=== PATIENT | female | born 2005 | race Two or more races ===

== ENCOUNTER 2025-02-07 08:35 | Outpatient (AMB) | payer MEDICAID, SELFPAY ==
--- NOTE | 2025-02-07 08:52 | AMB.OBINITIA ---
Vital Signs 02/07/25 08:57 Height 1.55 m Height Method Measured Weight 81.873 kg Weight Measurement Method Standing Scale BMI 34.1 BP 109/71 Blood Pressure Source Automatic Cuff Blood Pressure Location Left Upper Arm Position Sitting Respiration 16 Pulse 81 Pulse Source Monitor Temp 97.2 F Temp Source Oral Pulse Oximetry (%) 98 Oxygen Delivery Method Room Air Allergies/Home Meds Allergies & Medications Allergies No Known Allergies Allergy (Verified 02/07/25 08:58) Medication Reconciliation No Known Home Medications 02/07/25 [History Confirmed 02/07/25] Intake Visit Data Collection New Patient or Established: Established Patient (seen at [facility] within 3 years) Reason for Visit:: care transfer Seen by Clinical Staff ONLY (RN/MA): No Immigration Patrol Inspector Required: No Do You Feel Safe at Home: Yes Authorities Contacted: N/A PCP or OBGYN visit in last 3 months: Yes Hx Now: Yes Are you currently on any form of Control: No Last menstrual period: 06/29/24 Pain Present Currently: No Pain Scale Used: Wells-[place]/Numerical Pain scale:: 0 Smoking Status Smoking Status: Never smoker Questionnaires Covid-19 Vaccine Questionnaire Has patient been vacinated for Covid-19 Have you been vacinated for Covid-19: Yes PHQ-9 PHQ-2 Over the last 2 weeks, how often have you been bothered by any of the following problems? 1. Little interest or pleasure in doing things: not at all 2. Feeling down, depressed, or hopeless: not at all Total score: 0 PHQ-9 3. Trouble falling or staying asleep, or sleeping too much: Not at all 4. Feeling tired or having little energy: Not at all 5. Poor appetite or overeating: Not at all 6. Feeling bad about yourself - or that you are a failure or have let yourself or your family down: Not at all 7. Trouble concentrating on things, such as reading the newspaper or watching television: Not at all 8. Moving or speaking so slowly that other people could have noticed? - Or the opposite - being so fidgety or restless that you have been moving around a lot more than usual: not at all 9. Thoughts that you would be better off or of hurting yourself in some way: Not at all Total score: 0 Source: Developed by Drs. Gautam Stevenson, Daphney Duque, Kenny Claire and colleagues, with an educational zuhair from [employer]. Depression screen completed yes Social History Living Situation History Marital Status: Single Lives With: Family Housing: Apartment Tobacco History Smoking Status: Never smoker Second Hand Smoke Exposure: No Alcohol History Alcohol Intake: Never Domestic Abuse History Do You Feel Safe at Home: Yes Past Medical History Past Medical History Have you ever been diagnosed with any of the following: Endocrine Problems Diabetes Mellitus Type 2: No (mother) History of Present Illness HPI Narrative 19-year-old 1 para 0 for first visit [facility]. Patient is a transfer from Dr. Lema at 32 weeks. Last. June 29, 2024. Estimated due date April 03, 2025. Patient had her first ultrasound November 08. Patient was 19 weeks 4 days and this confirmed due date. And then patient had a 25-week ultrasound December 19 and this also confirmed dates. Denies social habits. Denies surgery. Denies chronic illness. Patient's has been uneventful. She reports good movement. Denies symptoms of labor. Patient is O+, screen negative, RPR nonreactive, rubella nonimmune, hepatitis B negative, HIV negative, hep C negative, her gonorrhea culture was negative. Chlamydia positive. The note states that patient and partner were treated. There is no follow-up culture that was done. 1 hour Glucola was normal. aFP NIPT and carrier screens were all normal. And the ultrasound showed normal growth no complaints of labor at this time OB Initial Visit OB Flowsheet OB Flowsheet Initial Weight: Not Recorded Date <del>?</del> EGA Weight Edema CTX Effacement BP Fundal ht Pres Dilation Effacement Station Visit Note Alb Glu FHR Mov 02/07/25 <del>?</del> 32w 4d 81.873 kg absent absent 109/71 30 unknown 19-year-old 1 for first OB visit. Patient reports good movement. Taking vitamins. Compliant with care. [facility] from [facility]. Patient is O+, antibody screen negative, RPR nonreactive, rubella nonimmune, platelets were normal. H&H was 36 and 11.2. Hemoglobin A1c was normal 1 hour GTT normal. Hepatitis B negative, HIV negative, hep C negative,. GC was negative. Chlamydia positive. Patient and partner were cheated. No test of cure noted. Schedule sono for growth because baby is measuring 3 to 4 weeks behind on dates. Encouraged kick count twice a day. Continue prenatals. NuSwab for gonorrhea and chlamydia today. Tdap next visit. Patient denies complaints 19-year-old 1 for first OB visit. Patient reports good movement. Taking vitamins. Compliant with care. Transfer from [facility]. Patient is O+, antibody screen negative, RPR nonreactive, rubella nonimmune, platelets were normal. H&H was 36 and 11.2. Hemoglobin A1c was normal 1 hour GTT normal. Hepatitis B negative, HIV negative, hep C negative,. GC was negative. Chlamydia positive. Patient and partner were cheated. No test of cure noted. Schedule sono for growth because baby is measuring 3 to 4 weeks behind on dates. Encouraged kick count twice a day. Continue prenatals. NuSwab for gonorrhea and chlamydia today. Tdap next visit. Patient denies complaints. UA: NIT-,KAREN:+1, PRO:trace 156 active Menstrual History Menstrual reliability: definite Flow: normal Menstrual regularity: regular Monthly: Yes Age at menarche: 15 On control pills at conception: No Associated symptoms (LMP): Denies amenorrhea, nausea, vomiting, fatigue, breast tenderness, urinary frequency, irritability, bloating or other OB History : 1 # of Living Children: 0 Infection History & Risk Evaluation History of STDs: chlamydia (partner and patient treated) HIV risk evaluation: low risk Hepatitis B risk evaluation: low risk Patient or partner has history of Genital Herpes: No Genetic Screening & History Genetic Screening/Teratology Counseling - Includes patient, baby's father, or anyone in either family with: 1. Patient's age 35 years or older as of estimated date of delivery: No 2. Thalassemia (Finnish, Jordanian, Mediterranean, or Background); MCV less than 80: No 3. Neural Tube Defect (Meningomyelocele, Spina Bifida, or Anencephaly): No 4. Congenital Heart Defect: No 5. Down Syndrome: No 6. Archie-Sachs (Ashkenazi Restorationism, Cajun, Upper Sorbian [place]): No 7. Tianna Disease (Ashkenazi Restorationism): No 8. Familial Dysautonomia (Ashkenazi Restorationism): No 9. Sickle Cell Disease or Trait (): No 10. Hemophilia or other blood disorders: No 11. Muscular Dystrophy: No 12. Cystic Fibrosis: No 13. [place]'s Chorea: No 14. Mental Retardation/Autism: No 15. Other inherited genetic or chromosomal disorder: No 16. Maternal Metabolic Disorder (EG,TYPE 1 Diabetes, PKU): No 17. Patient or baby's father had a child with defects not listed above: No 18. Recurrent loss or a stillbirth: No 19. Medications (including supplements, vitamins, herbs or otc drugs)/illicit/recreational drugs/alcohol since last menstrual period: No 20. Any other: No Infection History 1. Live with someone with TB or exposed to TB: No 2. Rash or viral illness since last menstrual period: No 3. Hepatitis B,C: No Other (see comments) Source: [employer] [place] Review of Systems Review of Systems Systems Reviewed: All systems reviewed, normal except as documented Constitutional Constitutional: Denies fatigue Gastrointestinal Gastrointestinal: Denies bloating, Denies nausea and Denies vomiting Genitourinary Genitourinary: Denies amenorrhea and Denies urinary frequency Psychiatric Psychiatric: Denies irritability Endocrine Endocrine: Denies fatigue Exam General Limitations: no limitations General Appearance: alert, in no apparent distress, comfortable, cooperative, healthy appearing, well developed and well groomed Head Head exam: atraumatic, normocephalic and normal inspection Chest Chest inspection: Present normal inspection and symmetric chest wall rise Resp Respiratory exam: Present normal lung sounds bilaterally Card Cardiovascular exam: Present regular rate, normal rhythm and normal heart sounds Abdominal Abdominal exam: Present soft and normal bowel sounds Psych Psychiatric exam: Present normal affect and normal mood Assessment & Plan Diagnosis / Problem List (1) Encounter for supervision of other normal , third trimester: Status: Acute (2) Size of fetus inconsistent with dates, antepartum: Status: Acute Plan Schedule ultrasound at [facility] for growth scan. Discussed labor precautions. Discussed kick count twice a day and encouraged. Continue vitamins and iron. NuSwab today for GC and chlamydia. Tdap next visit. Return in 2 weeks Additional Plan Follow Up: 2 Weeks (OBC) Office Procedures OB Clinic LOC & Office Proc's Nursing/Assessment Patient Status: Established Patient OB Clinic Nursing Assessment: Medication Reconciliation, Update PMH in EMR and Vital Signs OB Clinic Coordination of Care: Complex Care and Chronic Disease 1-5, Consent,records obtained, informed consent, Education Simp Pt/Fam, Lab and Imaging orders, Results/Orders obtained and Staff clarify orders Special Needs: Heart tones Miscellaneous Interventions: Blood/Urine Collection Established Patient Charge Established Patient Point Assignment: 165 Established Patient Point Charge: EP Level 5 (160-above)
[2025-02-07 08:57] VITALS: BP 109/71; PULSE 81; RESP 16; TEMP 36.2; O2SAT 98; BMI 34.1
[2025-02-07 09:31] LABS: Bilirubin,Urine Clinitek Negative (Negative); Blood,Urine Clinitek Negative (Negative); Glucose, Urine Clinitek Negative (Negative); Ketones,Urine Clinitek Negative (Negative); Leukocyte Esterase,Urine Clin Negative (Negative); Nitrite,Urine Clinitek Negative (Negative); Protein,Urine Clinitek Negative (Neg - Trace); Specific Gravity,Urine Clin 1.015 (1.001-1.030); Urobilinogen,Urine Clinitek 0.2 mg/dL (0.0-1.0)
== END 2025-02-07 09:56 | disposition home or self-care (01) ==
LOC: HODSOBC 08:35
PROVIDERS: PCP Advanced Practice Midwife; Referring Provider Advanced Practice Midwife; Supervising Provider Obstetrics & Gynecology; Visit Provider Advanced Practice Midwife
DX: O09.613 Supervision of young primigravida, third trimester (principal); Z3A.32 32 weeks gestation of pregnancy; O26.843 Uterine size-date discrepancy, third trimester
CPT/HCPCS: 81001; 99215; G0463

== ENCOUNTER 2025-02-21 10:58 | Outpatient (AMB) | payer MEDICAID, SELFPAY ==
[2025-02-21 11:15] VITALS: BP 123/81; PULSE 96; RESP 18; TEMP 36.4; O2SAT 97; BMI 34.6
--- NOTE | 2025-02-21 11:15 | OBCLNT_ITS ---
Vital Signs 02/21/25 11:15 Height 1.55 m Height Method Stated Weight 83.121 kg Weight Measurement Method Standing Scale BMI 34.6 BP 123/81 Blood Pressure Source Automatic Cuff Blood Pressure Location Left Upper Arm Position Sitting Respiration 18 Pulse 96 Pulse Source Monitor Temp 97.6 F Temp Source Oral Pulse Oximetry (%) 97 Oxygen Delivery Method Room Air Allergies/Home Meds Allergies & Medications Allergies No Known Allergies Allergy (Verified 02/21/25 11:16) Medication Reconciliation No Known Home Medications 02/07/25 [History Confirmed 02/21/25] Intake Visit Data Collection New Patient or Established: Established Patient (seen at 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 1. Little interest or pleasure in doing things: not at all 2. Feeling down, depressed, or hopeless: not at all Total score: 0 PHQ-9 3. Trouble falling or staying asleep, or sleeping too much: Not at all 4. Feeling tired or having little energy: Not at all 5. Poor appetite or overeating: Not at all 6. Feeling bad about yourself - or that you are a failure or have let yourself or your family down: Not at all 7. Trouble concentrating on things, such as reading the newspaper or watching television: Not at all 8. Moving or speaking so slowly that other people could have noticed? - Or the opposite - being so fidgety or restless that you have been moving around a lot more than usual: not at all 9. Thoughts that you would be better off or of hurting yourself in some way: Not at all Total score: 0 Source: Developed by Daphney IzquierdoW. Neto, Kenny Claire and colleagues, with an educational zuhair from [employer]. 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 Patient reports good movement. Taking vitamins. Compliant with care. Transfer from [facility]. Patient is O+, antibody screen negative, RPR nonreactive, rubella nonimmune, platelets were normal. H&H was 36 and 11.2. Hemoglobin A1c was normal 1 hour GTT normal. Hepatitis B negative, HIV negative, hep C negative,. GC was negative. Chlamydia positive. Patient and partner were cheated. No test of cure noted. Schedule sono for growth because baby is measuring 3 to 4 weeks behind on dates. Encouraged kick count twice a day. Continue prenatals. NuSwab for gonorrhea and chlamydia today. Tdap next visit. Patient denies complaints 19-year-old 1 for fi rst OB visit. Patient reports good movement. Taking vitamins. Compliant with care. Transfer from [facility]. Patient is O+, antibody screen negative, RPR nonreactive, rubella nonimmune, platelets were normal. H&H was 36 and 11.2. Hemoglobin A1c was normal 1 hour GTT normal. Hepatitis B negative, HIV negative, hep C negative,. GC was negative. Chlamydia positive. Patient and partner were cheated. No test of cure noted. Schedule sono for growth because baby is measuring 3 to 4 weeks behind on dates. Encouraged kick count twice a day. Continue prenatals. NuSwab for gonorrhea and chlamydia today. Tdap next visit. Patient denies complaints. UA: NIT-,KAREN:+1, PRO:trace 156 active 02/21/25 -?-?-?-?-?-?-?-?-?-?-?-?- 34w 4d 83.121 kg absent absent 123/81 33 cephalic reports movement. denies PTL sign and symptom, discuss fkc bid, GBS NV, schedule sono for growth. patient has dignity insurance, attempting approval. increase fluid, fkc bid, rtc 1 week. TDAP 151 active AD Calculator Estimated Delivery Date Method Current WG Current Estimate 03/31/25 Ultrasound #1 34w 4d Other Estimates 04/05/25 LMP (Certain) 33w 6d 04/01/25 Ultrasound #2 34w 3d Notes Visit Date: 02/21/25 Last Updated by: Mayra Brink CNM 20yo. , O+,abs-,rpr;;nr, rub NI, Hbsag-,HC-,HIV, GC-/CT+. treated pt/partner, TALA was negative Office Procedures OB Clinic LOC & Office Proc's Nursing/Assessment Patient Status: Established Patient OB Clinic Nursing Assessment: Medication Reconciliation, Update PMH in EMR and Vital Signs OB Clinic Coordination of Care: Complex Care and Chronic Disease 1-5, Consent,records obtained, informed consent, Education Simp Pt/Fam, Lab and Imaging orders, Results/Orders obtained and Staff clarify orders Special Needs: Heart tones Miscellaneous Interventions: Blood/Urine Collection Established Patient Charge Established Patient Point Assignment: 165 Established Patient Point Charge: EP Level 5 (160-above) Injection/Vaccine Admin Admin 1st Vaccine: Yes Immunizations diphth,pertus(acell),tetanus 2.5 Lf unit-8 mcg-5 Lf/0.5mL IM syringe Performing Provider: Mayra Brink CNM Performing Location: [facility] Administered by: Adore Franklin MA on 02/21/25 11:58 Dose Route Admin Location Dispensed Lot Number Expiration Date [facility] [employer] Deputy [employer] 0.5 mL IM Left Deltoid 0.5 mL [id number] 03/23/27 [id number] Box VIS Given Date VIS Provided VIS Publication Date 02/21/25 Single Vaccine 24 Eligibility Eligibility Date Funding Source [facility] Non-[facility] Assessment & Plan Diagnosis / Problem List (1) Encounter for supervision of other normal , third trimester: Status: Acute Plan Tdap today. Discussed labor precautions. Discussed kick counts twice a day. Increase fluids. Continue vitamins. I rescheduled sono for growth. Return in a week for GBS Additional Plan Follow Up: 1 Week (obc)
[2025-02-21 12:53] LABS: Bilirubin,Urine Clinitek Negative (Negative); Blood,Urine Clinitek Negative (Negative); Glucose, Urine Clinitek Negative (Negative); Ketones,Urine Clinitek Negative (Negative); Leukocyte Esterase,Urine Clin 1+ (Negative); Nitrite,Urine Clinitek Negative (Negative); PH,Urine Clinitek 6.5 (5.0-7.0); Protein,Urine Clinitek 2+ (Neg - Trace); Specific Gravity,Urine Clin >= 1.030 (1.001-1.030); Urobilinogen,Urine Clinitek 0.2 mg/dL (0.0-1.0)
== END 2025-02-21 11:54 | disposition home or self-care (01) ==
LOC: HODSOBC 10:58
PROVIDERS: Supervising Provider Advanced Practice Midwife; Visit Provider Advanced Practice Midwife
DX: O09.613 Supervision of young primigravida, third trimester (principal); Z3A.34 34 weeks gestation of pregnancy; Z23 Encounter for immunization
CPT/HCPCS: 81001; 90471; 90715; 99215; G0463

== ENCOUNTER 2025-02-27 14:28 | Outpatient (AMB) | payer MEDICAID, SELFPAY ==
[2025-02-27 15:01] VITALS: BP 118/66; PULSE 83; RESP 18; TEMP 36.2; O2SAT 98; BMI 35.5
--- NOTE | 2025-02-27 15:01 | AMB.OBVISIT ---
Vital Signs 02/27/25 15:01 Height 1.55 m Height Method Stated Weight 85.389 kg Weight Measurement Method Standing Scale BMI 35.5 BP 118/66 Blood Pressure Source Automatic Cuff Blood Pressure Location Left Upper Arm Position Sitting Respiration 18 Pulse 83 Pulse Source Monitor Temp 97.2 F Temp Source Oral Pulse Oximetry (%) 98 Oxygen Delivery Method Room Air Allergies/Home Meds Allergies & Medications Allergies No Known Allergies Allergy (Verified 02/27/25 15:03) Medication Reconciliation No Known Home Medications 02/07/25 [History Confirmed 02/27/25] Intake Visit Data Collection New Patient or Established: Established Patient (seen at [facility] within 3 years) Reason for Visit:: <del>FOLLOW</del> <del>UP</del> Seen by Clinical Staff ONLY (RN/MA): No Athletic Equipment Manager Required: Yes Do You Feel Safe at Home: Yes Authorities Contacted: N/A PCP or OBGYN visit in last 3 months: Yes Date of Last PCP or OBGYN visit: 02/21/25 Hx Now: Yes Are you currently on any form of Control: No Pain Present Currently: No Pain Scale Used: Wells-T[place]/Numerical Pain scale:: 0 Smoking Status Smoking Status: Never smoker Questionnaires PHQ-9 PHQ-2 Over the last 2 weeks, how often have you been bothered by any of the following problems? 1. Little interest or pleasure in doing things: not at all 2. Feeling down, depressed, or hopeless: not at all Total score: 0 PHQ-9 3. Trouble falling or staying asleep, or sleeping too much: Not at all 4. Feeling tired or having little energy: Not at all 5. Poor appetite or overeating: Not at all 6. Feeling bad about yourself - or that you are a failure or have let yourself or your family down: Not at all 7. Trouble concentrating on things, such as reading the newspaper or watching television: Not at all 8. Moving or speaking so slowly that other people could have noticed? - Or the opposite - being so fidgety or restless that you have been moving around a lot more than usual: not at all 9. Thoughts that you would be better off or of hurting yourself in some way: Not at all Total score: 0 If you checked off any problems, how difficult have these problems made it for you to do your work, take care of things at home, or get along with other people?: not difficult at all Source: Developed by Drs. Gautam Stevenson, Daphney Duque, Kenny Claire and colleagues, with an educational zuhair from [employer]. 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 Patient reports good movement. Taking vitamins. Compliant with care. Transfer from [facility]. Patient is O+, antibody screen negative, RPR nonreactive, rubella nonimmune, platelets were normal. H&H was 36 and 11.2. Hemoglobin A1c was normal 1 hour GTT normal. Hepatitis B negative, HIV negative, hep C negative,. GC was negative. Chlamydia positive. Patient and partner were cheated. No test of cure noted. Schedule sono for growth because baby is measuring 3 to 4 weeks behind on dates. Encouraged kick count twice a day. Continue prenatals. NuSwab for gonorrhea and chlamydia today. Tdap next visit. Patient denies complaints 19-year-old 1 for first OB visit. Patient reports good movement. Taking vitamins. Compliant with care. Transfer from [facility]. Patient is O+, antibody screen negative, RPR nonreactive, rubella nonimmune, platelets were normal. H&H was 36 and 11.2. Hemoglobin A1c was normal 1 hour GTT normal. Hepatitis B negative, HIV negative, hep C negative,. GC was negative. Chlamydia positive. Patient and partner were cheated. No test of cure noted. Schedule sono for growth because baby is measuring 3 to 4 weeks behind on dates. Encouraged kick count twice a day. Continue prenatals. NuSwab for gonorrhea and chlamydia today. Tdap next visit. Patient denies complaints. UA: NIT-,KAREN:+1, PRO:trace 02/21/25 <del>?</del> 34w 4d 83.121 kg 123/81 absent cephalic 33 151 active reports movement. denies PTL sign and symptom, discuss fkc bid, GBS NV, schedule sono for growth. patient has dignity insurance, attempting approval. increase fluid, fkc bid, rtc 1 week. TDAP 02/27/25 <del>?</del> 35w 3d 85.389 kg 118/66 absent cephalic 33 145 active fetus active, no c/o UC,VB or LOF. denies PIH complaints f/u on mfm appointment, discuss FKC bid and labor precaution. NST/BPP today for small for dates. GBS today. RTC 1 week AD Calculator Estimated Delivery Date Method Current WG Current Estimate 03/31/25 Ultrasound #1 35w 3d Other Estimates 04/05/25 LMP (Certain) 34w 5d 04/01/25 Ultrasound #2 35w 2d Notes Visit Date: 02/21/25 Last Updated by: Mayra Brink CNM 20yo. , O+,abs-,rpr;;nr, rub NI, Hbsag-,HC-,HIV, GC-/CT+. treated pt/partner, TALA was negative Office Procedures OB Clinic LOC & Office Proc's Nursing/Assessment Patient Status: Established Patient OB Clinic Nursing Assessment: Medication Reconciliation, Update PMH in EMR and Vital Signs OB Clinic Coordination of Care: Education Complex Pt/Fam, Consent,records obtained, informed consent and Lab and Imaging orders Special Needs: Heart tones Miscellaneous Interventions: Pelvic Comp w/OB cult Established Patient Charge Established Patient Point Assignment: 115 Established Patient Point Charge: EP Level 3 (80-115) Assessment & Plan Diagnosis / Problem List (1) Size of fetus inconsistent with dates, antepartum: Status: Acute (2) Encounter for supervision of other normal , third trimester: Status: Acute Plan GBS today, discuss labor precaution, fkc bid reviewed with patient, MFM appointment pending Additional Plan Follow Up: 1 Week (OBC)
== END 2025-02-27 15:13 | disposition home or self-care (01) ==
LOC: HODSOBC 14:28
PROVIDERS: Supervising Provider Advanced Practice Midwife; Visit Provider Advanced Practice Midwife
DX: O09.613 Supervision of young primigravida, third trimester (principal); Z3A.35 35 weeks gestation of pregnancy; O26.843 Uterine size-date discrepancy, third trimester
CPT/HCPCS: 99213; G0463

== ENCOUNTER 2025-02-27 15:53 | Outpatient (CLI) | payer MEDICAID, SELFPAY ==
[2025-02-27 15:57] VITALS: PULSE 79; O2SAT 99
--- NOTE | 2025-02-27 16:00 | XR_ITS ---
Examination: Biophysical profile, ultrasound Date and time of exam: February 27, 2025 1611 hours INDICATIONS: Diagnosis intrauterine growth retardation Technique: Multiple transabdominal sonographic images of the pelvis abdomen obtained. Attention is directed to the breathing movement, gross body movement, amniotic fluid volume and tone. Findings: Amniotic fluid index 9.7 cm Total biophysical profile is 8 of 8. breathing movement is 2. Gross body movement is 2. tone is 2. Qualitative amniotic fluid volume is 2 Impression: Biophysical profile is 8 of 8.
[2025-02-27 16:02] VITALS: PULSE 73; O2SAT 98
[2025-02-27 16:17] VITALS: BP 120/67; PULSE 81; RESP 17; RESP 98; TEMP 36.7; BMI 34.4
[2025-02-27 16:20] VITALS: BP 120/67; PULSE 81; RESP 17; TEMP 36.7; O2SAT 98
== END 2025-02-27 16:48 | disposition home or self-care (01) ==
LOC: S4S1 15:55 → S4SX 15:56
PROVIDERS: Referring Provider Obstetrics & Gynecology; Visit Provider Obstetrics & Gynecology
DX: O36.5930 Maternal care for other known or suspected poor fetal growth, third trimester, not applicable or unspecified (principal); Z3A.35 35 weeks gestation of pregnancy
CPT/HCPCS: 59025; 76819

== ENCOUNTER 2025-03-06 14:06 | Outpatient (AMB) | payer MEDICAID, SELFPAY ==
[2025-03-06 14:27] VITALS: BP 112/70; PULSE 69; RESP 17; TEMP 36.7; O2SAT 96; BMI 35.1
--- NOTE | 2025-03-06 14:27 | AMB.OBVISIT ---
Vital Signs 03/06/25 14:27 Height 1.57 m Height Method Stated Weight 86.636 kg Weight Measurement Method Standing Scale BMI 35.1 BP 112/70 Blood Pressure Source Automatic Cuff Blood Pressure Location Right Upper Arm Position Sitting Respiration 17 Pulse 69 Pulse Source Monitor Temp 98.0 F Temp Source Temporal Artery Scan Pulse Oximetry (%) 96 Oxygen Delivery Method Room Air Allergies/Home Meds Allergies & Medications Allergies No Known Allergies Allergy (Verified 03/06/25 14:31) Medication Reconciliation vit no.105-iron 30 mg-folic acid 1.4 mg-dha 300 mg oral pack pkg 02/27/25 [History Confirmed 03/06/25] Intake Visit Data Collection New Patient or Established: Established Patient (seen at [facility] within 3 years) Reason for Visit:: OBC Seen by Clinical Staff ONLY (RN/MA): No 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 1. Little interest or pleasure in doing things: not at all 2. Feeling down, depressed, or hopeless: not at all Total score: 0 PHQ-9 3. Trouble falling or staying asleep, or sleeping too much: Not at all 4. Feeling tired or having little energy: Not at all 5. Poor appetite or overeating: Not at all 6. Feeling bad about yourself - or that you are a failure or have let yourself or your family down: Not at all 7. Trouble concentrating on things, such as reading the newspaper or watching television: Not at all 8. Moving or speaking so slowly that other people could have noticed? - Or the opposite - being so fidgety or restless that you have been moving around a lot more than usual: not at all If you checked off any problems, how difficult have these problems made it for you to do your work, take care of things at home, or get along with other people?: not difficult at all Source: Developed by Drs. Gautam Stevenson, Daphney Duque, Kenny Claire and colleagues, with an educational zuhair from [employer]. Depression screen completed yes Social History Living Situation History Lives With: Family Housing: Apartment Tobacco History Smoking Status: Never smoker Second Hand Smoke Exposure: No Alcohol History Alcohol Intake: Never Domestic Abuse History Do You Feel Safe at Home: Yes [employer]OR [employer]: Past Medical History Past Medical History: No Hx Diabetes Mellitus Type 2 (mother) Care OB Visit Log OB Flowsheet Initial Weight: Not Recorded Date <del>?</del> EGA Weight BP Alb Glu CTX Pres Fundal ht FHR Mov Dilation Station Effacement Hx Notes Visit Note 02/07/25 <del>?</del> 32w 4d 81.873 kg 109/71 absent unknown 30 156 active 19-year-old 1 for first OB visit. Patient reports good movement. Taking vitamins. Compliant with care. Transfer from living water. Patient is O+, antibody screen negative, RPR nonreactive, rubella nonimmune, platelets were normal. H&H was 36 and 11.2. Hemoglobin A1c was normal 1 hour GTT normal. Hepatitis B negative, HIV negative, hep C negative,. GC was negative. Chlamydia positive. Patient and partner were cheated. No test of cure noted. Schedule sono for growth because baby is measuring 3 to 4 weeks behind on dates. Encouraged kick count twice a day. Continue prenatals. NuSwab for gonorrhea and chlamydia today. Tdap next visit. Patient denies complaints 19-year-old 1 for first OB visit. Patient reports good movement. Taking vitamins. Compliant with care. Transfer from living water. Patient is O+, antibody screen negative, RPR nonreactive, rubella nonimmune, platelets were normal. H&H was 36 and 11.2. Hemoglobin A1c was normal 1 hour GTT normal. Hepatitis B negative, HIV negative, hep C negative,. GC was negative. Chlamydia positive. Patient and partner were cheated. No test of cure noted. Schedule sono for growth because baby is measuring 3 to 4 weeks behind on dates. Encouraged kick count twice a day. Continue prenatals. NuSwab for gonorrhea and chlamydia today. Tdap next visit. Patient denies complaints. UA: NIT-,KAREN:+1, PRO:trace 02/21/25 <del>?</del> 34w 4d 83.121 kg 123/81 absent cephalic 33 151 active reports movement. denies PTL sign and symptom, discuss fkc bid, GBS NV, schedule sono for growth. patient has dignity insurance, attempting approval. increase fluid, fkc bid, rtc 1 week. TDAP 02/27/25 <del>?</del> 35w 3d 85.389 kg 118/66 absent cephalic 33 145 active fetus active, no c/o UC,VB or LOF. denies PIH complaints f/u on mfm appointment, discuss FKC bid and labor precaution. NST/BPP today for small for dates. GBS today. RTC 1 week 03/06/25 <del>?</del> 36w 3d 86.636 kg 112/70 absent cephalic 35 145 active fetus active. no c/o labor. no leaking, no bleeding continue PNV. discuss labor precaution, fkc bid, increase fluid. RTC 1 week AD Calculator Estimated Delivery Date Method Current WG Current Estimate 03/31/25 Ultrasound #1 36w 3d Other Estimates 04/05/25 LMP (Certain) 35w 5d 04/01/25 Ultrasound #2 36w 2d Notes Visit Date: 02/21/25 Last Updated by: Mayra Brink CNM 20yo. , O+,abs-,rpr;;nr, rub NI, Hbsag-,HC-,HIV, GC-/CT+. treated pt/partner, TALA was negative Office Procedures OB Clinic LOC & Office Proc's Nursing/Assessment Patient Status: Established Patient OB Clinic Nursing Assessment: Medication Reconciliation, Update PMH in EMR and Vital Signs OB Clinic Coordination of Care: Complex Care and Chronic Disease 1-5, Consent,records obtained, informed consent, Education Simp Pt/Fam and Staff clarify orders Special Needs: Heart tones Established Patient Charge Established Patient Point Assignment: 115 Established Patient Point Charge: EP Level 3 (80-115) Assessment & Plan Diagnosis / Problem List (1) Encounter for supervision of other normal , third trimester: Status: Acute Plan discuss labor precaution with patient. review s/s of labor and when to go to hospital. FKC BID, continue PNV, increase fluids. rtc 1 week Additional Plan Follow Up: 1 Week (obc)
== END 2025-03-06 14:34 | disposition home or self-care (01) ==
LOC: HODSOBC 14:06
PROVIDERS: PCP Advanced Practice Midwife; Referring Provider Advanced Practice Midwife; Supervising Provider Advanced Practice Midwife; Visit Provider Advanced Practice Midwife
DX: Z34.03 Encounter for supervision of normal first pregnancy, third trimester (principal); Z3A.36 36 weeks gestation of pregnancy
CPT/HCPCS: 99213; G0463

== ENCOUNTER 2025-03-13 13:06 | Outpatient (AMB) | payer MEDICAID, SELFPAY ==
[2025-03-13 13:13] VITALS: BP 124/76; PULSE 80; RESP 18; TEMP 36.2; O2SAT 98; BMI 35.3
--- NOTE | 2025-03-13 13:13 | OBCLNT_ITS ---
Vital Signs 03/13/25 13:13 Height 1.57 m Height Method Stated Weight 87.146 kg Weight Measurement Method Standing Scale BMI 35.3 BP 124/76 Blood Pressure Source Automatic Cuff Blood Pressure Location Left Upper Arm Position Sitting Respiration 18 Pulse 80 Pulse Source Monitor Temp 97.2 F Temp Source Oral Pulse Oximetry (%) 98 Oxygen Delivery Method Room Air Allergies/Home Meds Allergies & Medications Allergies No Known Allergies Allergy (Verified 03/13/25 13:14) Medication Reconciliation vit no.105-iron 30 mg-folic acid 1.4 mg-dha 300 mg oral pack pkg 02/27/25 [History Confirmed 03/13/25] Intake Visit Data Collection New Patient or Established: Established Patient (seen at [facility] within 3 years) Reason for Visit:: OBC Seen by Clinical Staff ONLY (RN/MA): No Brand Marketing Manager Required: No Do You Feel Safe at Home: Yes Authorities Contacted: N/A PCP or OBGYN visit in last 3 months: Yes Date of Last PCP or OBGYN visit: 03/06/25 Hx Now: Yes Are you currently on any form of Control: No Pain Present Currently: No Pain Scale Used: Wells-[place]/Numerical Pain scale:: 0 Smoking Status Smoking Status: Never smoker Questionnaires Covid-19 Vaccine Questionnaire Has patient been vacinated for Covid-19 Have you been vacinated for Covid-19: Yes PHQ-9 PHQ-2 Over the last 2 weeks, how often have you been bothered by any of the following problems? 1. Little interest or pleasure in doing things: not at all 2. Feeling down, depressed, or hopeless: not at all Total score: 0 PHQ-9 3. Trouble falling or staying asleep, or sleeping too much: Not at all 4. Feeling tired or having little energy: Not at all 5. Poor appetite or overeating: Not at all 6. Feeling bad about yourself - or that you are a failure or have let yourself or your family down: Not at all 8. Moving or speaking so slowly that other people could have noticed? - Or the opposite - being so fidgety or restless that you have been moving around a lot more than usual: not at all 9. Thoughts that you would be better off or of hurting yourself in some way: Not at all If you checked off any problems, how difficult have these problems made it for you to do your work, take care of things at home, or get along with other people?: not difficult at all Source: Developed by Drs. Gautam Stevenson, Daphney Duque, Kenny Claire and colleagues, with an educational zuhair from [employer]. 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 Patient reports good movement. Taking vitamins. Compliant with care. Transfer from living water. Patient is O+, antibody screen negative, RPR nonreactive, rubella nonimmune, platelets were normal. H&H was 36 and 11.2. Hemoglobin A1c was normal 1 hour GTT normal. Hepatitis B negative, HIV negative, hep C negative,. GC was negative. Chlamydia positive. Patient and partner were cheated. No test of cure noted. Schedule sono for growth because baby is measuring 3 to 4 weeks behind on dates. Encouraged kick count twice a day. Continue prenatals. NuSwab for gonorrhea and chlamydia today. Tdap next visit. Patient denies complaints 19-year-old 1 for fi rst OB visit. Patient reports good movement. Taking vitamins. Compliant with care. Transfer from living water. Patient is O+, antibody screen negative, RPR nonreactive, rubella nonimmune, platelets were normal. H&H was 36 and 11.2. Hemoglobin A1c was normal 1 hour GTT normal. Hepatitis B negative, HIV negative, hep C negative,. GC was negative. Chlamydia positive. Patient and partner were cheated. No test of cure noted. Schedule sono for growth because baby is measuring 3 to 4 weeks behind on dates. Encouraged kick count twice a day. Continue prenatals. NuSwab for gonorrhea and chlamydia today. Tdap next visit. Patient denies complaints. UA: NIT-,KAREN:+1, PRO:trace 02/21/25 -?-?-?-?-?-?-?-?-?-?-?-?- 34w 4d 83.121 kg 123/81 absent cephalic 33 151 active reports movement. denies PTL sign and symptom, discuss fkc bid, GBS NV, schedule sono for growth. patient has dignity insurance, attempting approval. increase fluid, fkc bid, rtc 1 week. TDAP 02/27/25 -?-?-?-?-?-?-?-?-?-?-?-?- 35w 3d 85.389 kg 118/66 absent cephalic 33 145 active fetus active, no c/o UC,VB or LOF. denies PIH complaints f/u on mfm appointment, discuss FKC bid and labor precaution. NST/BPP today for small for dates. GBS today. RTC 1 week 03/06/25 -?-?-?-?-?-?-?-?-?-?-?-?- 36w 3d 86.636 kg 112/70 absent cephalic 35 145 active fetus active. no c/o labor. no leaking, no bleeding c ontinue PNV. discuss labor precaution, fkc bid, increase fluid. RTC 1 week 03/13/25 -?-?-?-?-?-?-?-?-?-?-?-?- 37w 3d 87.146 kg 124/76 absent cephalic 36 156 active fetus active. no c/o leaking,bleeding or UC. fetus active per patient, no complaints discuss fkc bid, ocntinue PNV. discuss labor precaution, danger s/s and ER precaution, rtc 1 week obc AD Calculator Estimated Delivery Date Method Current WG Current Estimate 03/31/25 Ultrasound #1 37w 3d Other Estimates 04/05/25 LMP (Certain) 36w 5d 04/01/25 Ultrasound #2 37w 2d Notes Visit Date: 03/13/25 Last Updated by: Mayra Brink CNM LMP 06/29/24; EDC 04/03/25. sono 11/08/24 19w5; EDC 03/31/25(final AD) GBS-,NUSWAB- Visit Date: 02/21/25 Last Updated by: Mayra Brink CNM 20yo. , O+,abs-,rpr;;nr, rub NI, Hbsag-,HC-,HIV, GC-/CT+. treated pt/partner, TALA was negative Office Procedures OB Clinic LOC & Office Proc's Nursing/Assessment Patient Status: Established Patient OB Clinic Nursing Assessment: Medication Reconciliation, Update PMH in EMR and Vital Signs OB Clinic Coordination of Care: Education Complex Pt/Fam, Lab and Imaging orders and Staff clarify orders Special Needs: Heart tones Established Patient Charge Established Patient Point Assignment: 105 Established Patient Point Charge: EP Level 3 (80-115) Assessment & Plan Diagnosis / Problem List (1) Size of fetus inconsistent with dates, antepartum: Status: Acute (2) Encounter for supervision of other normal , third trimester: Status: Acute Plan discuss labor precaution, fkc bid, contineu PNV, discuss ER precaution, danger s/s and sign of labor. rtc 1 week obc Additional Plan Follow Up: 1 Week (obc)
== END 2025-03-13 13:44 | disposition home or self-care (01) ==
LOC: HODSOBC 13:06
PROVIDERS: Supervising Provider Advanced Practice Midwife; Visit Provider Advanced Practice Midwife
DX: O09.893 Supervision of other high risk pregnancies, third trimester (principal); Z3A.37 37 weeks gestation of pregnancy; O26.843 Uterine size-date discrepancy, third trimester
CPT/HCPCS: 99213; G0463

== ENCOUNTER 2025-03-20 14:18 | Outpatient (AMB) | payer MEDICAID, SELFPAY ==
[2025-03-20 14:36] VITALS: BP 125/75; PULSE 70; RESP 17; TEMP 36.6; O2SAT 95; BMI 36.4
--- NOTE | 2025-03-20 14:36 | OBCLNT_ITS ---
Vital Signs 03/20/25 14:36 Height 1.57 m Height Method Stated Weight 89.925 kg Weight Measurement Method Standing Scale BMI 36.4 BP 125/75 Blood Pressure Source Automatic Cuff Blood Pressure Location Right Upper Arm Position Sitting Respiration 17 Pulse 70 Pulse Source Monitor Temp 97.9 F Temp Source Temporal Artery Scan Pulse Oximetry (%) 95 Oxygen Delivery Method Room Air Allergies/Home Meds Allergies & Medications Allergies No Known Allergies Allergy (Verified 03/20/25 14:37) Medication Reconciliation vit no.105-iron 30 mg-folic acid 1.4 mg-dha 300 mg oral pack pkg [History Confirmed 03/20/25] Intake Visit Data Collection New Patient or Established: Established Patient (seen at [facility] within 3 years) Reason for Visit:: OBC Seen by Clinical Staff ONLY (RN/MA): No Director Of In Service Education Required: No Do You Feel Safe at Home: Yes Authorities Contacted: N/A PCP or OBGYN visit in last 3 months: Yes Date of Last PCP or OBGYN visit: 03/13/25 Hx Now: Yes Pain Present Currently: No Pain Scale Used: Wells-[place]/Numerical Pain scale:: 0 Smoking Status Smoking Status: Never smoker Questionnaires Covid-19 Vaccine Questionnaire Has patient been vacinated for Covid-19 Have you been vacinated for Covid-19: Yes PHQ-9 PHQ-2 Over the last 2 weeks, how often have you been bothered by any of the following problems? 1. Little interest or pleasure in doing things: not at all 2. Feeling down, depressed, or hopeless: not at all Total score: 0 PHQ-9 3. Trouble falling or staying asleep, or sleeping too much: Not at all 4. Feeling tired or having little energy: Not at all 5. Poor appetite or overeating: Not at all 6. Feeling bad about yourself - or that you are a failure or have let yourself or your family down: Not at all 7. Trouble concentrating on things, such as reading the newspaper or watching television: Not at all 8. Moving or speaking so slowly that other people could have noticed? - Or the opposite - being so fidgety or restless that you have been moving around a lot more than usual: not at all 9. Thoughts that you would be better off or of hurting yourself in some way: Not at all Total score: 0 If you checked off any problems, how difficult have these problems made it for you to do your work, take care of things at home, or get along with other peopl e?: not difficult at all Source: Developed by Drs. Gautam Stevenson, Daphney Duque, Kenny Claire and colleagues, with an educational zuhair from [employer]. 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 Patient reports good movement. Taking vitamins. Compliant with care. Transfer from living water. Patient is O+, antibody screen negative, RPR nonreactive, rubella nonimmune, platelets were normal. H&H was 36 and 11.2. Hemoglobin A1c was normal 1 hour GTT normal. Hepatitis B negative, HIV negative, hep C negative,. GC was negative. Chlamydia positive. Patient and partner were cheated. No test of cure noted. Schedule sono for growth because baby is measuring 3 to 4 weeks behind on dates. Encouraged kick count twice a day. Continue prenatals. NuSwab for gonorrhea and chlamydia today. Tdap next visit. Patient denies complaints 19-year-old 1 for fi rst OB visit. Patient reports good movement. Taking vitamins. Compliant with care. Transfer from living water. Patient is O+, antibody screen negative, RPR nonreactive, rubella nonimmune, platelets were normal. H&H was 36 and 11.2. Hemoglobin A1c was normal 1 hour GTT normal. Hepatitis B negative, HIV negative, hep C negative,. GC was negative. Chlamydia positive. Patient and partner were cheated. No t est of cure noted. Schedule sono for growth because baby is measuring 3 to 4 weeks behind on dates. Encouraged kick count twice a day. Continue prenatals. NuSwab for gonorrhea and chlamydia today. Tdap next visit. Patient denies complaints. UA: NIT-,KAREN:+1, PRO:trace 02/21/25 -?-?-?-?-?-?-?-?-?-?-?-?- 34w 4d 83.121 kg 123/81 absent cephalic 33 151 active reports movement. denies PTL sign and symptom, discuss fkc bid, GBS NV, schedule sono for growth. patient has dignity insurance, attempting approval. increase fluid, fkc bid, rtc 1 week. TDAP 02/27/25 -?-?-?-?-?-?-?-?-?-?-?-?- 35w 3d 85.389 kg 118/66 absent cephalic 33 145 active fetus active, no c/o UC,VB or LOF. denies PIH complaints f/u on mfm appointment, discuss FKC bid and labor precaution. NST/BPP today for small for dates. GBS today. RTC 1 week 03/06/25 -?-?-?-?--?-?-?-?-?-?-?-?- 36w 3d 86.636 kg 112/70 absent cephalic 35 145 active fetus active. no c/o labor. no leaking, no bleeding c ontinue PNV. discuss labor precaution, fkc bid, increase fluid. RTC 1 week 03/13/25 -?-?-?-?-?-?-?-?-?-?-?-?- 37w 3d 87.146 kg 124/76 absent cephalic 36 156 active fetus active. no c/o leaking,bleeding or UC. fetus active per patient, no complaints discuss fkc bid, ocntinue PNV. discuss labor precaution, danger s/s and ER precaution, rtc 1 week obc 03/20/25 -?-?-?-?-?-?-?-?-?-?-?-?- 38w 3d 89.925 kg 125/75 occasional cephalic 37 145 active fetus active, occ uc, no LOF,no VB. increased pressure advised to continue PNV daily, fkc bid, review labor precaution, danger signs and ER precaution. rtc 1 week obc AD Calculator Estimated Delivery Date Method Current WG Current Estimate 03/31/25 Ultrasound #1 38w 3d Other Estimates 04/05/25 LMP (Certain) 37w 5d 04/01/25 Ultrasound #2 38w 2d Notes Visit Date: 03/13/25 Last Updated by: Mayra Brink CNM LMP 06/29/24; EDC 04/03/25. sono 11/08/24 19w5; EDC 03/31/25(final AD) GBS-,NUSWAB- Visit Date: 02/21/25 Last Updated by: Mayra Brink CNM 20yo. , O+,abs-,rpr;;nr, rub NI, Hbsag-,HC-,HIV, GC-/CT+. treated pt/partner, TALA was negative Office Procedures OB Clinic LOC & Office Proc's Nursing/Assessment Patient Status: Established Patient OB Clinic Nursing Assessment: Medication Reconciliation, Update PMH in EMR and Vital Signs OB Clinic Coordination of Care: Complex Care and Chronic Disease 1-5, Consent,records obtained, informed consent, Education Simp Pt/Fam and Staff clarify orders Special Needs: Heart tones Established Patient Charge Established Patient Point Assignment: 115 Established Patient Point Charge: EP Level 3 (80-115) Assessment & Plan Diagnosis / Problem List (1) Encounter for supervision of other normal , third trimester: Status: Acute Plan advised to continue PNV daily, reviewed fkc bid. comfort measure. discusss/s of labor, danger sign and ER precaution, rtc 1 week OBC Additional Plan Follow Up: 1 Week (obc)
== END 2025-03-20 14:56 | disposition home or self-care (01) ==
LOC: HODSOBC 14:18
PROVIDERS: Supervising Provider Advanced Practice Midwife; Visit Provider Advanced Practice Midwife
DX: Z34.03 Encounter for supervision of normal first pregnancy, third trimester (principal); Z3A.38 38 weeks gestation of pregnancy
CPT/HCPCS: 99213; G0463

== ENCOUNTER 2025-03-27 13:18 | Outpatient (AMB) | payer MEDICAID, SELFPAY ==
[2025-03-27 13:34] VITALS: BP 123/74; PULSE 90; RESP 18; TEMP 36.2; O2SAT 98; BMI 36.3
--- NOTE | 2025-03-27 13:34 | AMB.OBVISIT ---
Vital Signs 03/27/25 13:34 Height 1.57 m Height Method Stated Weight 89.528 kg Weight Measurement Method Standing Scale BMI 36.3 BP 123/74 Blood Pressure Source Automatic Cuff Blood Pressure Location Left Upper Arm Position Sitting Respiration 18 Pulse 90 Pulse Source Monitor Temp 97.2 F Temp Source Oral Pulse Oximetry (%) 98 Oxygen Delivery Method Room Air Allergies/Home Meds Allergies & Medications Allergies No Known Allergies Allergy (Verified 03/27/25 13:36) Medication Reconciliation vit no.105-iron 30 mg-folic acid 1.4 mg-dha 300 mg oral pack pkg 02/27/25 [History Confirmed 03/27/25] Intake Visit Data Collection New Patient or Established: Established Patient (seen at [facility] within 3 years) Reason for Visit:: OBC Seen by Clinical Staff ONLY (RN/MA): No Financial Assistance Advisor Required: No Do You Feel Safe at Home: Yes Authorities Contacted: N/A PCP or OBGYN visit in last 3 months: Yes Date of Last PCP or OBGYN visit: 03/20/25 Hx Now: Yes Are you currently on any form of Control: No Pain Present Currently: No Pain Scale Used: Wells-[place]/Numerical Pain scale:: 0 Smoking Status Smoking Status: Never smoker Questionnaires Covid-19 Vaccine Questionnaire Has patient been vacinated for Covid-19 Have you been vacinated for Covid-19: Yes PHQ-9 PHQ-2 Over the last 2 weeks, how often have you been bothered by any of the following problems? 1. Little interest or pleasure in doing things: not at all 2. Feeling down, depressed, or hopeless: not at all Total score: 0 PHQ-9 3. Trouble falling or staying asleep, or sleeping too much: Not at all 4. Feeling tired or having little energy: Not at all 5. Poor appetite or overeating: Not at all 6. Feeling bad about yourself - or that you are a failure or have let yourself or your family down: Not at all 7. Trouble concentrating on things, such as reading the newspaper or watching television: Not at all 8. Moving or speaking so slowly that other people could have noticed? - Or the opposite - being so fidgety or restless that you have been moving around a lot more than usual: not at all 9. Thoughts that you would be better off or of hurting yourself in some way: Not at all Total score: 0 If you checked off any problems, how difficult have these problems made it for you to do your work, take care of things at home, or get along with other people?: not difficult at all Source: Developed by Drs. Gautam Stevenson, Daphney Duque, Kenny Claire and colleagues, with an educational zuhair from [employer]. 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 Patient reports good movement. Taking vitamins. Compliant with care. Transfer [facility]. Patient is O+, antibody screen negative, RPR nonreactive, rubella nonimmune, platelets were normal. H&H was 36 and 11.2. Hemoglobin A1c was normal 1 hour GTT normal. Hepatitis B negative, HIV negative, hep C negative,. GC was negative. Chlamydia positive. Patient and partner were cheated. No test of cure noted. Schedule sono for growth because baby is measuring 3 to 4 weeks behind on dates. Encouraged kick count twice a day. Continue prenatals. NuSwab for gonorrhea and chlamydia today. Tdap next visit. Patient denies complaints 19-year-old 1 for first OB visit. Patient reports good movement. Taking vitamins. Compliant with care. Transfer from [facility]. Patient is O+, antibody screen negative, RPR nonreactive, rubella nonimmune, platelets were normal. H&H was 36 and 11.2. Hemoglobin A1c was normal 1 hour GTT normal. Hepatitis B negative, HIV negative, hep C negative,. GC was negative. Chlamydia positive. Patient and partner were cheated. No test of cure noted. Schedule sono for growth because baby is measuring 3 to 4 weeks behind on dates. Encouraged kick count twice a day. Continue prenatals. NuSwab for gonorrhea and chlamydia today. Tdap next visit. Patient denies complaints. UA: NIT-,KAREN:+1, PRO:trace 02/21/25 <del>?</del> 34w 4d 83.121 kg 123/81 absent cephalic 33 151 active reports movement. denies PTL sign and symptom, discuss fkc bid, GBS NV, schedule sono for growth. patient has dignity insurance, attempting approval. increase fluid, fkc bid, rtc 1 week. TDAP 02/27/25 <del>?</del> 35w 3d 85.389 kg 118/66 absent cephalic 33 145 active fetus active, no c/o UC,VB or LOF. denies PIH complaints f/u on mfm appointment, discuss FKC bid and labor precaution. NST/BPP today for small for dates. GBS today. RTC 1 week 03/06/25 <del>?</del> 36w 3d 86.636 kg 112/70 absent cephalic 35 145 active fetus active. no c/o labor. no leaking, no bleeding continue PNV. discuss labor precaution, fkc bid, increase fluid. RTC 1 week 03/13/25 <del>?</del> 37w 3d 87.146 kg 124/76 absent cephalic 36 156 active fetus active. no c/o leaking,bleeding or UC. fetus active per patient, no complaints discuss fkc bid, ocntinue PNV. discuss labor precaution, danger s/s and ER precaution, rtc 1 week obc 03/20/25 <del>?</del> 38w 3d 89.925 kg 125/75 occasional cephalic 37 145 active fetus active, occ uc, no LOF,no VB. increased pressure advised to continue PNV daily, fkc bid, review labor precaution, danger signs and ER precaution. rtc 1 week obc 03/27/25 <del>?</del> 39w 3d 89.528 kg 123/74 absent breech 37 133 active fetus active, no labor complaints, c/o pressure, denies ESTEE/VB/UC discuss labor precaution, fkc bid/reviewed with patient, discuss ER precaution and PIH s/s, hydrate, rtc 1 week obc AD Calculator Estimated Delivery Date Method Current WG Current Estimate 03/31/25 Ultrasound #1 39w 3d Other Estimates 04/05/25 LMP (Certain) 38w 5d 04/01/25 Ultrasound #2 39w 2d Notes Visit Date: 03/13/25 Last Updated by: Mayra Brink CNM LMP 06/29/24; EDC 04/03/25. sono 11/08/24 19w5; EDC 03/31/25(final AD) GBS-,NUSWAB- Visit Date: 02/21/25 Last Updated by: Mayra Brink CNM 20yo. , O+,abs-,rpr;;nr, rub NI, Hbsag-,HC-,HIV, GC-/CT+. treated pt/partner, TALA was negative Office Procedures OB Clinic LOC & Office Proc's Nursing/Assessment Patient Status: Established Patient OB Clinic Nursing Assessment: Medication Reconciliation, Update PMH in EMR and Vital Signs OB Clinic Coordination of Care: Education Complex Pt/Fam, Consent,records obtained, informed consent, Lab and Imaging orders, Results/Orders obtained and Staff clarify orders Special Needs: Heart tones Established Patient Charge Established Patient Point Assignment: 115 Established Patient Point Charge: EP Level 3 (80-115) Assessment & Plan Diagnosis / Problem List (1) Encounter for supervision of other normal , third trimester: Status: Acute Plan discuss labor precaution, fkc bid and reviewed fkc with patient. hydrate. rtc 1 week obc Additional Plan Follow Up: 1 Week (obc)
== END 2025-03-27 14:03 | disposition home or self-care (01) ==
LOC: HODSOBC 13:18
PROVIDERS: Supervising Provider Advanced Practice Midwife; Visit Provider Advanced Practice Midwife
DX: Z34.03 Encounter for supervision of normal first pregnancy, third trimester (principal); Z3A.39 39 weeks gestation of pregnancy
CPT/HCPCS: 99213; G0463

== ENCOUNTER 2025-04-09 13:38 | Outpatient (AMB) | payer MEDICAID, SELFPAY ==
[2025-04-09 13:47] VITALS: BP 120/77; PULSE 78; RESP 15; TEMP 36.5; O2SAT 98; BMI 37.4
--- NOTE | 2025-04-09 13:47 | OBCLNT_ITS ---
Vital Signs 04/09/25 13:47 Height 1.57 m Height Method Stated Weight 92.193 kg Weight Measurement Method Standing Scale BMI 37.4 BP 120/77 Blood Pressure Source Automatic Cuff Blood Pressure Location Right Upper Arm Position Sitting Respiration 15 Pulse 78 Pulse Source Monitor Temp 97.7 F Temp Source Oral Pulse Oximetry (%) 98 Oxygen Delivery Method Room Air Allergies/Home Meds Allergies & Medications Allergies No Known Allergies Allergy (Verified 04/09/25 13:48) Medication Reconciliation vit no.105-iron 30 mg-folic acid 1.4 mg-dha 300 mg oral pack pkg 02/27/25 [History Confirmed 04/09/25] Intake Visit Data Collection New Patient or Established: Established Patient (seen at [facility] within 3 years) Reason for Visit:: CARE Seen by Clinical Staff ONLY (RN/MA): No Welt Sewer Required: No Do You Feel Safe at Home: Yes Authorities Contacted: N/A PCP or OBGYN visit in last 3 months: Yes Hx Now: Yes Are you currently on any form of Control: No Pain Present Currently: No Pain Scale Used: Wells-[place]/Numerical Pain scale:: 0 Smoking Status Smoking Status: Never smoker Questionnaires Covid-19 Vaccine Questionnaire Has patient been vacinated for Covid-19 Have you been vacinated for Covid-19: Yes PHQ-9 PHQ-2 Over the last 2 weeks, how often have you been bothered by any of the following problems? 1. Little interest or pleasure in doing things: not at all 2. Feeling down, depressed, or hopeless: not at all Total score: 0 PHQ-9 3. Trouble falling or staying asleep, or sleeping too much: Not at all 4. Feeling tired or having little energy: Not at all 5. Poor appetite or overeating: Not at all 6. Feeling bad about yourself - or that you are a failure or have let yourself or your family down: Not at all 7. Trouble concentrating on things, such as reading the newspaper or watching television: Not at all 8. Moving or speaking so slowly that other people could have noticed? - Or the opposite - being so fidgety or restless that you have been moving around a lot more than usual: not at all 9. Thoughts that you would be better off or of hurting yourself in some way: Not at all Total score: 0 Source: Developed by Drs. Gautam Stevenson, Daphney Duque, Kenny Claire and colleagues, with an educational zuhair from [employer]. 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 No contractions, LOF, VB and reports good FM. Denies LUCIO, VC, and epigastric pain. - Mayra Caro is a patient at 40 weeks and 6 days gestation, presenting for routine care. - Due date: 04-05-2025 - Induction scheduled for 04-15-2025 - Patient reports: - movement present - No contractions - No complaints or symptoms reported Care OB Visit Log OB Flowsheet Initial Weight: Not Recorded Date -?-?-?-?-?-?-?-?-?-?-?-?- EGA Weight BP Alb Glu CTX Pres Fundal ht FHR Mov Dilation Station Effacement Hx Notes Visit Note 02/07/25 -?-?-?-?-?-?-?-?-?-?-?-?- 31w 6d 81.873 kg 109/71 absent unknown 30 156 active 19-year-old 1 for first OB visit. Patient reports good movement. Taking vitamins. Compliant with care. Transfer from [facility]. Patient is O+, antibody screen negative, RPR nonreactive, rubella nonimmune, platelets were normal. H&H was 36 and 11.2. Hemoglobin A1c was normal 1 hour GTT normal. Hepatitis B negative, HIV negative, hep C negative,. GC was negative. Chlamydia positive. Patient and partner were cheated. No test of cure noted. Schedule sono for growth because baby is measuring 3 to 4 weeks behind on dates. Encouraged kick count twice a day. Continue prenatals. NuSwab for gonor barb and chlamydia today. Tdap next visit. Patient denies complaints 19-year-old 1 for fi rst OB visit. Patient reports good movement. Taking vitamins. Compliant with care. Transfer from [facility]. Patient is O+, antibody screen negative, RPR nonreactive, rubella nonimmune, platelets were normal. H&H was 36 and 11.2. Hemoglobin A1c was normal 1 hour GTT normal. Hepatitis B negative, HIV negative, hep C negative,. GC was negative. Chlamydia positive. Patient and partner were cheated. No test of cure noted. Schedule sono for growth because baby is measuring 3 to 4 weeks behind on dates. Encouraged kick count twice a day. Continue prenatals. NuSwab for gonorrhea and chlamydia today. Tdap next visit. Patient denies complaints. UA: NIT-,KAREN:+1, PRO:trace 02/21/25 -?-?-?-?-?-?-?-?-?-?-?-?- 33w 6d 83.121 kg 123/81 absent cephalic 33 151 active reports movement. denies PTL sign and symptom, discuss fkc bid, GBS NV, schedule sono for growth. patient has dignity insurance, attempting approval. increase fluid, fkc bid, rtc 1 week. TDAP 02/27/25 -?-?-?-?-?-?-?-?-?-?-?-?- 34w 5d 85.389 kg 118/66 absent cephalic 33 145 active fetus active, no c/o UC,VB or LOF. denies PIH complaints f/u on mfm appointment, discuss FKC bid and labor precaution. NST/BPP today for small for dates. GBS today. RTC 1 week 03/06/25 -?-?-?-?-?-?-?-?-?-?-?-?- 35w 5d 86.636 kg 112/70 absent cephalic 35 145 active fetus active. no c/o labor. no leaking, no bleeding c ontinue PNV. discuss labor precaution, fkc bid, increase fluid. RTC 1 week 03/13/25 -?-?-?-?-?-?-?-?-?-?-?-?- 36w 5d 87.146 kg 124/76 absent cephalic 36 156 active fetus active. no c/o leaking,bleeding or UC. fetus active per patient, no complaints discuss fkc bid, ocntinue PNV. discuss labor precaution, danger s/s and ER precaution, rtc 1 week obc 03/20/25 -?-?-?-?-?-?-?-?-?-?-?-?- 37w 5d 89.925 kg 125/75 occasional cephalic 37 145 active fetus active, occ uc, no LOF,no VB. increased pressure advised to continue PNV daily, fkc bid, review labor precaution, danger signs and ER precaution. rtc 1 week ob 03/27/25 -?-?-?-?-?-?-?-?-?-?-?-?- 38w 5d 89.528 kg 123/74 absent breech 37 133 active fetus active, no labor complaints, c/o pressure, denies ESTEE/VB/UC discuss labor precaution, fkc bid/reviewed with patient, discuss ER precaution and PIH s/s, hydrate, rtc 1 week [facility] 04/09/25 -?-?-?-?-?-?-?-?-?-?-?-?- 40w 4d 92.193 kg 120/77 occasional cephalic 40 145 active Mayra Caro presents at 40w6d with no CTX, LOF, or VB, and reports good FM. Induction scheduled for 04/15/25; patient instructed to call hospital at 8 AM. Sent today for monitoring and DELICIA check. No further office visits planned AD Calculator Estimated Delivery Date Method Current WG Current Estimate 04/05/25 LMP (Certain) 40w 4d Other Estimates 03/31/25 Ultrasound #1 41w 2d 04/01/25 Ultrasound #2 41w 1d Notes Visit Date: 03/13/25 Last Updated by: Mayra Brink CNM LMP 06/29/24; EDC 04/03/25. sono 11/08/24 19w5; EDC 03/31/25(final AD) GBS-,NUSWAB- Visit Date: 02/21/25 Last Updated by: Mayra Brink CNM 20yo. , O+,abs-,rpr;;nr, rub NI, Hbsag-,HC-,HIV, GC-/CT+. treated pt/partner, TALA was negative Exam General General Appearance: alert, in no apparent distress and healthy appearing Head Head exam: atraumatic Neck Neck exam: Present normal inspection and trachea midline Chest Chest inspection: Present normal inspection and symmetric chest wall rise External exam: Present normal external exam; Absent tenderness Neuro Neurological exam: Present oriented X3 Psych Psychiatric exam: Present normal affect and normal mood Office Procedures OB Clinic LOC & Office Proc's Nursing/Assessment Patient Status: Established Patient OB Clinic Nursing Assessment: Medication Reconciliation, Update PMH in EMR and Vital Signs OB Clinic Coordination of Care: Complex Care and Chronic Disease 1-5, Consent,records obtained, informed consent, Education Simp Pt/Fam, Results/Orders obtained and Staff clarify orders Special Needs: Heart tones Established Patient Charge Established Patient Point Assignment: 120 Established Patient Point Charge: EP Level 4 (120-155) Assessment & Plan Diagnosis / Problem List (1) Size of fetus inconsistent with dates, antepartum: Status: Acute (2) Encounter for supervision of other normal , third trimester: Status: Acute Plan Problem List - , post-term Assessment female at 40 weeks and 6 days gestation, past due date of 04-05-2025, presenting for routine care. Patient reports normal movement. heart rate auscultated at 140 bpm, noted as normal. No contractions reported. Induction of labor scheduled for 04-15-2025 if spontaneous labor does not occur before then. Plan - Induction scheduled for 04-15-2025 - Patient to call hospital at 8:00 AM on 04-15-2025 - Immediate referral to hospital for monitoring and amniotic fluid measurement - No further appointments at current office
== END 2025-04-09 14:16 | disposition home or self-care (01) ==
LOC: HODSOBC 13:38
PROVIDERS: Supervising Provider Internal Medicine; Visit Provider Obstetrics & Gynecology
DX: O09.893 Supervision of other high risk pregnancies, third trimester (principal); O26.843 Uterine size-date discrepancy, third trimester; Z3A.40 40 weeks gestation of pregnancy; O48.0 Post-term pregnancy
CPT/HCPCS: 99214; G0463

== ENCOUNTER 2025-04-09 14:07 | Outpatient (CLI) | payer MEDICAID, SELFPAY ==
[2025-04-09 14:13] VITALS: BP 118/71; PULSE 85; RESP 16; RESP 99; TEMP 36.8; BMI 35.9
--- NOTE | 2025-04-09 14:14 | XR_ITS ---
Examination: Biophysical profile, ultrasound Date and time of exam: April 09, 2025 1453 hours INDICATIONS: Post dates, pelvic pain one week Technique: Multiple transabdominal sonographic images of the pelvis abdomen obtained. Attention is directed to the breathing movement, gross body movement, amniotic fluid volume and tone. Findings: Amniotic fluid index 7.3 cm Total biophysical profile is 8 of 8. breathing movement is 2. Gross body movement is 2. tone is 2. Qualitative amniotic fluid volume is 2 Impression: Biophysical profile is 8 of 8.
[2025-04-09 14:17] VITALS: BP 118/71; PULSE 70
--- NOTE | 2025-04-09 14:52 | PC.NURSE ---
PT ACCOMPANIED BY [facility] TO US FOR BPP IN STABLE CONDITION.
== END 2025-04-09 16:00 | disposition home or self-care (01) ==
LOC: S4S1 14:08 → S4SX 14:08
PROVIDERS: Referring Provider Obstetrics & Gynecology; Visit Provider Obstetrics & Gynecology
DX: Z34.03 Encounter for supervision of normal first pregnancy, third trimester (principal); Z36.9 Encounter for antenatal screening, unspecified; Z3A.40 40 weeks gestation of pregnancy
CPT/HCPCS: 59025; 76819

== ENCOUNTER 2025-04-14 18:55 | Inpatient (IN) | payer MEDICAID, SELFPAY ==
[2025-04-14] VITALS (47 sets, daily range): BP systolic 130–183; BP diastolic 71–108; PULSE 59–81; RESP 18; TEMP 36.9; O2SAT 93–100; BMI 36.1
[2025-04-14] MEDS: RINGERS LACTATED 1000 ML 1,000 ML 100 ML IV (19:38)
[2025-04-14 19:44] LABS: Collection Type, Urine Clean Catch
[2025-04-14 19:46] LABS: Basophils # (Auto) 0.0 Thou/mm3 (0.0-0.2); Basophils % (Auto) 1 % (0-2.5); Eosinophils # (Auto) 0.1 Thou/mm3 (0.0-0.5); Eosinophils % (Auto) 2 % (0-10); Hematocrit 34.8 % (36.0-46.0); Hemoglobin 11.3 g/dL (12.0-16.0); Immature Granulocytes Auto 0.09 Thou/mm3 (0.00-0.00); Lymphocytes # (Auto) 2.6 Thou/mm3 (1.0-4.8); Lymphocytes % (Auto) 37 % (10-50); Mean Corpuscular HGB Conc 32.5 g/dl (31.0-37.0); Mean Corpuscular Hemoglobin 24.5 pg (25.0-35.0); Mean Corpuscular Volume 76 fL (80-100); Monocytes # (Auto) 0.5 Thou/mm3 (0.0-0.8); Monocytes % (Auto) 7 % (0-12); Neutrophils # (Auto) 3.7 Thou/mm3 (1.8-7.7); Neutrophils % (Auto) 53 % (37-80); Nucleated Red Blood Cell # 0.00 Thou/mm3 (0.00-0.00); Nucleated Red Blood Cell % 0 /100 WBC (0); Platelet Count 175 Thou/mm3 (140-440); RDW Standard Deviation 44.1 fL (36.4-46.3); Red Blood Count 4.61 Miln/mm3 (4.00-5.20); White Blood Count 7.0 Thou/mm3 (4.5-11.0)
[2025-04-14 19:49] LABS: Bilirubin,Urine Negative (Negative); Blood,Urine Negative (Negative); Clarity,Urine Clear (Clear/Hazy); Color,Urine Yellow (Lt Yel-Yel); Glucose, Urine Negative (Negative); Hyaline Casts,Urine < 1 /hpf (0-1); Ketones,Urine Negative (Negative); Leukocyte Esterase,Urine Positive (Negative); Nitrite,Urine Negative (Negative); PH,Urine 6.0 (5.0-7.0); Protein,Urine 1+ (Neg - Trace); RBC,Urine 1 /hpf (0-3); Specific Gravity,Urine 1.029 (1.001-1.035); Squamous Epithelial Cell,Urine 1 /hpf (0-5); Urobilinogen,Urine Negative mg/dL (0.0-1.0); WBC,Urine 9 /hpf (0-5)
[2025-04-14 20:09] LABS: Fibrinogen 398 mg/dL (175-375); INR 0.9 (0.9-1.3); Partial Thromboplastin Time 26.3 Seconds (22.0-36.0); Prothrombin Time 9.3 Seconds (9.0-12.2)
[2025-04-14 20:17] LABS: Alanine Aminotransferase 8 U/L (10-49); Albumin, Serum 4.0 gm/dL (3.5-5.0); Albumin/Globulin Ratio 1.5 (1.2-2.2); Alkaline Phosphatase 260 U/L (46-116); Anion Gap 10 (7-16); Aspartate Amino Transferase 20 U/L (0-34); BUN/Creatinine Ratio 20 Ratio (12-20); Bilirubin,Total 0.3 mg/dL (0.3-1.2); Blood Urea Nitrogen 14 mg/dL (9-23); Calcium 9.1 mg/dL (8.3-10.6); Calcium (Corrected) 9.1 mg/dL (8.5-10.1); Carbon Dioxide 23.5 mMol/L (20.0-31.0); Chloride 108 mMol/L (98-107); Creatinine (Component) 0.7 mg/dL (0.6-1.3); Estimated Creatinine Clearance 138.6 mL/min (>60); Globulin 2.6 gm/dL (2.3-3.5); Glucose 84 mg/dL (74-106); Osmolality,Calculated 280 (275-295); Potassium 4.7 mMol/L (3.4-5.1); Sodium 141 mMol/L (136-145); Total Protein 6.6 gm/dL (5.7-8.2); Uric Acid 5.8 mg/dL (3.1-7.8); eGFR > 60 See Note
[2025-04-14 20:21] LABS: Amphetamine/Metham Scrn,Ur OB Negative (Negative); Benzoylecgonine Screen, Ur OB Negative (Negative); Creatinine,Random Urine 175 mg/dL (30-125); Opiate Screen,Urine OB Negative (Negative); Protein Total, Random Urine 143 mg/dL (1-14); THC Screen,Urine OB Negative (Negative)
[2025-04-14] MEDS: LABETALOL INJ 5 MG/ML VIAL 20 ML 20 MG IVP (21:51)
[2025-04-14 21:56] LABS: Syphilis Nonreactive (Nonreactive)
[2025-04-14] MEDS: hydrALAZINE INJ 20 MG/ML VIAL 5 MG IVP (23:18)
--- NOTE | 2025-04-14 23:55 | PD.LDHP ---
Documentation for date of: 04/14/25 OB Labor/Induct. HPI History of Present Illness Chief complaint: Postdates induction : 2 Term pregnancies: 0 pregnancies: 0 Living children: 0 History of Abortions: Spontaneous and Elective: 1 History of sections: No History of : No Date of last menstrual period: 06/29/24 AD: 04/05/25 Gestational Age (weeks): 41 Gestational Age (days): 2 Gestational age based on last menstrual period: 41 Indication for induction: post dates History of present illness: The patient is a 20-year-old -0-1-0 with all care started with Dr. Kline and then transferred at 30 weeks to Mayra Brink CNM who presented for a scheduled induction of labor secondary to postdates. The patient is 41-2/7 weeks . Patient she reported good movement no contractions no loss of fluids. heart tones were 40s and reactive. Blood pressures on admission were slightly elevated PIH labs were drawn and normal with the exception of her protein creatinine ratio (UPCR) was 0.81 which corresponds to a 24-hour urine protein and 1062 mg. On admission patient was 2 cm dilated 70% effaced -2 station. Vertex presentation. A recent ultrasound revealed the baby to be about 7 pounds. 50 mcg of Cytotec were placed on admission. History of Present Dating criteria: based on 2nd trimester US only Adequate Care: Yes Ultrasounds: normal mid trimester US Obstetrical complications: none Medical complications: none Labs Maternal Blood Type: O Pos Labs: Negative: RPR, Hepatitis B, Rubella Titre (Rubella nonimmune), HIV, Chlamydia, Gonorrhea and Group Beta Strep and Unknown: Herpes Type 1, Herpes Type 2 and Covid-19 Past Medical History Surgical History SURGICAL: Negative Section Meds Home Medications and Allergies Home Medications ?Medication ?Instructions ?Recorded ?Confirmed ?Type vit no.105-iron 30 1 pkg PO QDAY 02/27/25 04/14/25 History mg-folic acid 1.4 mg-dha 300 mg oral pack Allergies Allergy/AdvReac Type Severity Reaction Status Date / Time No Known Allergies Allergy Verified 04/14/25 19:30 OB Exam Physical Exam Vital signs: Temp Pulse Resp BP Pulse Ox 98.4 F 70 18 154/93 H 99 04/14/25 19:03 04/14/25 23:49 04/14/25 19:03 04/14/25 23:49 04/14/25 23:52 Routine Abdominal Exam Abdominal: Present soft Detailed Labor and Delivery Exam Dilation (cm): 2 Effacement (%): 70 Cervix position: posterior station: -2 Consistency: soft Presentation: Vertex Membranes: intact monitor accelerations: 15x15 monitor decelerations: None terminal 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 variability: Moderate (11-25) Contraction frequency (min): Every 2 -3 min Tachysystole: No Contraction intensity: Mild OB Results Labs 04/14/25 19:15 04/14/25 19:15 Labs: Short CBC 04/14/25 Range/Units 19:15 WBC 7.0 (4.5-11.0) Thou/mm3 Hgb 11.3 L (12.0-16.0) g/dL Hct 34.8 L (36.0-46.0) % Plt Count 175 (140-440) Thou/mm3 BMP 04/14/25 19:15 Sodium 141 Potassium 4.7 Chloride 108 H Carbon Dioxide 23.5 BUN 14 Creatinine 0.7 Glucose 84 Calcium 9.1 Liver Function 04/14/25 Range/Units 19:15 Total Bilirubin 0.3 (0.3-1.2) mg/dL AST 20 (0-34) U/L ALT 8 L (10-49) U/L Alkaline Phosphatase 260 H (46-116) U/L Albumin 4.0 (3.5-5.0) gm/dL Urine 04/14/25 Range/Units 19:00 Urine Color Yellow (Lt Yel-Yel) Urine Clarity Clear (Clear/Hazy) Urine pH 6.0 (5.0-7.0) Ur Specific Beatrice 1.029 (1.001-1.035) Urine Protein 1+ A (Neg - Trace) Urine Glucose (UA) Negative (Negative) OB Assessment & Plan Assessment and Plan (1) Post-dates : Status: Acute (2) Supervision of high risk in third trimester: Status: Acute (3) Preeclampsia: Status: Acute Assessment and plan: Hold off on magnesium for now. Preeclampsia is based on a couple of elevated blood pressures and her urine /protein creatinine ratio. Additional Plan Induction method: per misoprostol protocol Plan: induction (1) Post-dates Qualifiers: Post-term type: 40-42 weeks gestation Qualified Code(s): O48.0 - Post-term (3) Preeclampsia Qualifiers: Trimester: third trimester Qualified Code(s): O14.93 - Unspecified pre-eclampsia, third trimester
[2025-04-15] VITALS (301 sets, daily range): BP systolic 105–195; BP diastolic 58–102; PULSE 56–139; RESP 16–19; TEMP 36.5–37.4; O2SAT 92–100
--- NOTE | 2025-04-15 00:53 | PD.ADDPROG ---
Addendum Progress Note Addendum Date of report being addended: 04/15/25 Narrative: The patient is 3 cm dilated mena every 2 to 3 minutes. Her BPs have been elevated on and off requiring IV labetalol push x 1 20 mg and hydralazine 5 mg IVP x 1. s/p cytotec 50 ug vaginally. Pitocin written.
[2025-04-15] MEDS: OXYTOCIN in NS 30 units 30 UNIT/500 ML BAG IV (01:19)
[2025-04-15] MEDS: RINGERS LACTATED 1000 ML 1,000 ML 100 ML IV ×3 (02:43→18:42)
[2025-04-15] MEDS: LABETALOL INJ 5 MG/ML VIAL 20 ML 40 MG IVP ×2 (03:46→12:16)
--- NOTE | 2025-04-15 07:50 | PD.LDPN ---
Documentation for date of: 04/15/25 OB Labor Progress Note Pelvic Exam Dilation (cm): 4 Effacement (%): 70 station: -2 Amniotic membrane status: Ruptured Contractions Monitor mode: External Contraction frequency: 2-3 Contraction intensity: Mild Status Comments: Category 1 Assessment and Plan Comments: IUP 41 weeks and 3 days Preeclampsia Induction of labor Anticipate spontaneous vaginal delivery Epidural in place Informed consent was obtained. The patient was made aware of the risk complications alternatives and benefits of operative vaginal delivery and delivery and agrees with these modes of delivery if indicated.
[2025-04-15] MEDS: hydrALAZINE INJ 20 MG/ML VIAL 10 MG IVP (13:27)
[2025-04-15] MEDS: LABETALOL INJ 5 MG/ML VIAL 20 ML 60 MG IVP (15:49)
[2025-04-15] MEDS: MINERAL OIL 30 ML UDC TOP (17:15)
[2025-04-15] MEDS: OXYTOCIN in NS 20 units 20 UNIT/1,000 ML BAG 125 UNIT IV (17:39)
[2025-04-15] MEDS: BENZO/LANO/ALOE (Dermoplast) 60 GM CAN 1 SPRAY TOP (17:54)
[2025-04-15] MEDS: IBUPROFEN TAB 400 MG TABLET 800 MG PO ×2 (18:13→22:25)
[2025-04-15] MEDS: TRANEXAMIC ACID 1,000 MG IVPB 1,000 MG/100 ML BAG 200 MG IV (18:40)
[2025-04-15] MEDS: ceFAZolin/D5W 2 GM IV 2 GM/100 ML BAG IV (18:47)
--- NOTE | 2025-04-15 18:47 | PD.LDDELS ---
Vacuum Assisted Delivery General Patient Counseled by physician:: Yes Informed consent to patient:: Yes Estimated weight:: 8 lb Cervical dilation:: fully dilated station:: +4 position:: OA Molding:: No Caput:: Yes Vacuum Application Vacuum type:: Kiwi Vacuum application:: flexing median Total vacuum time (min):: 7 Maximum pressure (cm Hg):: 50 Cup Placement Flexion point identified:: Yes Cup approp. for head position:: Yes Maternal tissue excluded:: Yes Vacuum Procedure Number of pulls (contractions):: 3 Number of pop-offs:: 2 Recommended range maintained:: Yes Vacuum reduced between pulls:: Yes Advancement made each pull:: Yes Vacuum successful:: Yes Immediate [employer] Evaluation Immediate assessment:: no apparent injury Additional Comments Additional comments: Vacuum applied with station 4+ due to maternal exhaustion and desires commissary assistant with vaginal delivery. Data (Zheng) Data Hx Section: No : 2 Term: 0 : 0 Livin Abortions: Spontaneous & Theraputic: 1 Delivery Data (Zheng) Labor Data Initiation of labor: Spontaneous Induction/Augmentation Agent: Cytotec-PO and Pitocin ROM date: 04/15/25 ROM time: 06:15 Amniotic membrane rupture type: Artificial Amniotic fluid description: Clear Delivery Data EDC: 04/05/25 EDC calculated by:: LMP/early US confirmation Onset of labor date: 04/15/25 Onset of labor time: 11:32 Complete dilation date: 04/15/25 Complete dilation time: 15:05 delivery date: 04/15/25 [employer] delivery time: 17:39 Gestational age (weeks): 41 Gestational age (days): 2 Placenta delivery date: 04/15/25 Placenta delivery time: 17:45 Stage 1 total time: Labor - Stage 1 Duration 3 hours and 33 minutes Delivered by: Delivery nurse: Anali Yanes nurse: Arturo Fisher Associate Relations Specialist at delivery: Yes Support person(s) at delivery: fob Other staff at delivery: MICHAEL Mcdaniel RN Delivery Method Delivery method: Operative Vaginal Delivery Presentation: Vertex position: OA Anesthesia Type Anesthesia Type: Epidural Placenta Placenta delivery description: Spontaneous Cord blood sent to lab: Yes cord blood collection: Cord Blood Type Episiotomy Episiotomy description: None Lacerations #1: Perineal: 2nd degree Vaginal: 2nd degree (lateral sulcus left ) Labial: Bilateral 2nd degree. Perineal repair Sutures used for repair: 3.0 Chromic EBL Estimated blood loss (ml): 400 Umbilical Cord cord description: 3 Vessels and Nuchal Cord Additional Procedures Vaginal packing and peoples catheter placement Complications Complications: None [employer] [facility] Data (Zheng) [employer] [facility] Data order: 1 [employer]'s gender: Male Identification band number: [id number] weight (gms): 7 lb 14.986 oz Weight (pounds): 7 lbs and 15.0 ozs 1 minute: 8 5 minutes: 9
[2025-04-15] MEDS: ACETAMINOPHEN 325 MG TABLET 650 MG PO (20:58)
[2025-04-15 23:10] LABS: Basophils # (Auto) 0.0 Thou/mm3 (0.0-0.2); Basophils % (Auto) 0 % (0-2.5); Eosinophils # (Auto) 0.0 Thou/mm3 (0.0-0.5); Eosinophils % (Auto) 0 % (0-10); Hematocrit 23.3 % (36.0-46.0); Immature Granulocytes Auto 0.22 Thou/mm3 (0.00-0.00); Lymphocytes # (Auto) 1.5 Thou/mm3 (1.0-4.8); Lymphocytes % (Auto) 8 % (10-50); Mean Corpuscular HGB Conc 33.9 g/dl (31.0-37.0); Mean Corpuscular Hemoglobin 25.0 pg (25.0-35.0); Mean Corpuscular Volume 74 fL (80-100); Monocytes # (Auto) 1.0 Thou/mm3 (0.0-0.8); Monocytes % (Auto) 5 % (0-12); Neutrophils # (Auto) 15.2 Thou/mm3 (1.8-7.7); Neutrophils % (Auto) 85 % (37-80); Nucleated Red Blood Cell # 0.02 Thou/mm3 (0.00-0.00); Nucleated Red Blood Cell % 0 /100 WBC (0); Platelet Count 134 Thou/mm3 (140-440); RDW Standard Deviation 44.2 fL (36.4-46.3); Red Blood Count 3.16 Miln/mm3 (4.00-5.20); White Blood Count 18.0 Thou/mm3 (4.5-11.0)
[2025-04-15 23:12] LABS: Hemoglobin 7.9 g/dL (12.0-16.0)
[2025-04-16] VITALS (7 sets, daily range): BP systolic 106–125; BP diastolic 64–76; PULSE 70–82; RESP 16–19; TEMP 36.8–37.1; O2SAT 98–100
[2025-04-16] MEDS: ceFAZolin/D5W 2 GM IV 2 GM/100 ML BAG IV ×2 (02:34→10:48)
[2025-04-16] MEDS: RINGERS LACTATED 1000 ML 1,000 ML 100 ML IV (07:12)
--- NOTE | 2025-04-16 07:52 | ESPR_ITS ---
Subjective Subjective Interval history: Delivery type: , vaginal packing and Juarez catheter in place and currently on Ancef delivered at 1700 Patient doing well this morning. No acute complaints. Ambulating, tolerating p.o. and voiding without difficulty. HTN/Pre-Eclampsia screen: No chest pain, shortness of breath, headache, visual changes, epigastric or right upper quadrant pain. Breast-feeding, lochia diminishing. Bowel: Flatus+/ BM+ Exam Vital Signs Temp Pulse Resp BP Pulse Ox O2 Del Method 98.5 F 70 19 125/76 100 Room Air 04/16/25 04:35 04/16/25 04:35 04/16/25 04:35 04/16/25 04:35 04/16/25 04:35 04/16/25 04:35 Constitutional Constitutional: no acute distress Routine HEENT Exam Head: Present normocephalic and atraumatic Eye: Present EOMI and PERRL ENT: Present mucous membranes moist Routine Neck Exam Neck: Present supple and trachea midline Routine Respiratory Exam Respiratory: Present chest non-tender, lungs clear, normal breath sounds and no resp distress Routine Cardiovascular Exam Cardiovascular: Present RRR Routine Abdominal Exam Abdominal: Present soft and normoactive bowel sounds Routine Extremities Exam Extremities: Present full ROM Routine Skin Exam Skin: Present intact, dry and warm Routine Neurological Exam Neurological: Present alert, oriented X3 and CN II-XII intact Routine Psychiatric Exam Psychiatric: Present normal affect and normal thought process Objective Labs 04/15/25 22:50 04/14/25 19:15 Labs: Laboratory Results - last 24 hr 04/15/25 22:50 WBC 18.0 H D RBC 3.16 L Hgb 7.9 L D Hct 23.3 L D MCV 74 L MCH 25.0 MCHC 33.9 RDW Std Deviation 44.2 Plt Count 134 L D Neut % (Auto) 85 H Lymph % (Auto) 8 L Clayton % (Auto) 5 Eos % (Auto) 0 Baso % (Auto) 0 Neut # (Auto) 15.2 H Lymph # (Auto) 1.5 Clayton # (Auto) 1.0 H Eos # (Auto) 0.0 Baso # (Auto) 0.0 Immature Gran # (Auto) 0.22 H Absolute Nucleated RBC 0.02 H Immature Gran % 1 H Nucleated RBC % 0 Assessment & Plan Problem List (1) Post-dates : Status: Acute (2) Supervision of high risk in third trimester: Status: Acute (3) Preeclampsia: Status: Acute Assessment and plan: Blood pressures are stable (4) Vaginal delivery: Status: Acute Assessment and plan: 1. Continue routine /post-op care 2. Labs reviewed, cbc appropriate 3. Remove dressing/Juarez 4. Encourage to ambulate, shower 5. Encourage PO intake, breast feeding (5) hemorrhage: Status: Acute Time Spent With Patient Time: Total time spent is greater than 50% in coordination of care (as documented) at patient's floor/unit and/or counseling patient:
--- NOTE | 2025-04-16 09:28 | PC.NURSE ---
0910- MD VIVAR AT BEDSIDE TO REMOVE VAGINAL PACKING. VAG PACKING X1 PIECE REMOVED. PT TOLERATED WELL.
[2025-04-16] MEDS: IBUPROFEN TAB 400 MG TABLET 800 MG PO (23:54)
[2025-04-17 04:15] VITALS: BP 117/77; PULSE 67; RESP 16; TEMP 36.8; O2SAT 100
--- NOTE | 2025-04-17 06:28 | ESPR_ITS ---
RE: HALEY ESCOBAR : 2005 DATE OF SERVICE: 04/17/2025 S: day #2, the patient denies any problem or complaints. She is voiding, ambulating and tolerated regular diet and passing flatus. She denies any excessive vaginal bleeding. She denies any dizziness or lightheadedness. She denies any chest pain, palpitations, shortness of breath, or lower extremity pain. O: Vital Signs: Blood pressure 117/77, heart rate 67, respirations 16, temperature is 98.3, pulse ox is 100% on room air. Lungs: Clear to auscultation bilaterally. Heart: Regular rate and rhythm. Abdomen: Fundus is firm, nontender. Extremities: Nontender. A: day #2, status post vacuum-assisted vaginal delivery with vaginal packing. Packing has been removed. There is no excessive bleeding. Jolanta signs are stable. P: Discharge home. Discharge instructions given. Follow up in the office in 6 weeks. DT: 06:18:07 TT: 06:27:00 Ref: [id number] - TID: [id number]
--- NOTE | 2025-04-17 07:38 | PD.LDDS ---
DS: Providers Provider Date of admission: 04/14/25 18:55 Primary care physician: Physician No Primary/Family Admitting Provider: Veena Higgins MD ([facility]) Attending Provider on Admission: Tulio Bhatia MD Consults: 04/15/25 18:34 Referral Routine Comment: Attending Provider on DC: Eyad Chase MD Discharging Provider: Eyad Chase MD DS: Diagnosis Problem List Completed Was Problem List Reviewed/Reconciled?: Yes Summary/Hosp Course Brief History: The patient is a 20-year-old -0-1-0 with all care started with Dr. Kline and then transferred at 30 weeks to Mayra Brink CNM who presented for a scheduled induction of labor secondary to postdates. The patient is 41-2/7 weeks . Patient she reported good movement no contractions no loss of fluids. heart tones were 40s and reactive. Blood pressures on admission were slightly elevated PIH labs were drawn and normal with the exception of her protein creatinine ratio (UPCR) was 0.81 which corresponds to a 24-hour urine protein and 1062 mg. On admission patient was 2 cm dilated 70% effaced -2 station. Vertex presentation. A recent ultrasound revealed the baby to be about 7 pounds. 50 mcg of Cytotec were placed on admission. Peripartum Data Delivery Method: Operative Vaginal Delivery Episiotomy Description: None Laceration Description: see Delivery Summary Time Spent with Patient Time attestation: Total time spent providing and/or coordinating discharge services: Exam Vital Signs Temp Pulse Resp BP Pulse Ox O2 Del Method 98.3 F 67 16 117/77 100 Room Air 04/17/25 04:15 04/17/25 04:15 04/17/25 04:15 04/17/25 04:15 04/17/25 04:15 04/17/25 04:15 Discharge Plan Plan Patient Disposition: HOME (Self Care) Patient condition on transfer: Stable Prescriptions/Referrals Prescriptions/Med Rec: New ibuprofen 600 mg tablet 600 mg PO Q6H PRN (Reason: pain) Qty: 30 0RF ferrous sulfate 325 mg (65 mg iron) tablet 325 mg PO BID Qty: 60 1RF Continued [id number] 30 mg iron- 1.4 mg-300 mg combo pack 1 pkg PO QDAY Referrals: No Primary/Family,Physician [Primary Care Provider] - Patient/Caregiver Discharge Instructions Discharge Activity: activity as tolerated Other Discharge Activity Instructions:: Follow up office 6 weeks. Print Language: Surinamese Stand Alone Forms: Is[facility]ell Award Info., Patient Portal Info Letter Discharge Order Discharge Orders: Discharge (Routine); Ordered 04/17/25 Ordered By: Eyad Chase Planned Discharge Date 04/17/25
[2025-04-17 08:12] VITALS: BP 114/74; PULSE 78; RESP 20; TEMP 36.8; O2SAT 99
--- NOTE | 2025-04-17 12:11 | PC.SS ---
ENGINEERING CLERK conducted bedside contact with the patient to address nursing referral indicating patient was late to care.? ENGINEERING CLERK utilized translation services to assist with discussion.? Patient is Kinyarwanda speaking.? ENGINEERING CLERK introduced self and role.? At bedside with patient was Nghia LOTT.? Patient gave permission for FOB to be present during discussion.? Patient confirmed late to care.? Patient shared that she did not know that she was .? Patient stated that , Yvon; is her first child.? Upon confirming patient utilized OB services from Dr. Kline.? Patient reports consistency with OB services once confirmation confirmed.? Infant delivered naturally.? Patient will combo feed the .? Patient is receiving WIC.? Patient is not aligned with SNAP or TANF.? Patient denies history of alcohol/drug use.? Patient denies episodes of domestic violence.? Patient denies history of CWS intervention.? Patient denies history of mental health services.? Patient has access to appropriate supplies, car seat and equipment.? FOB will provide transportation upon discharge.? Patient describes possessing support system consisting of FOB and her sister.? ENGINEERING CLERK provided community resources to include [facility] and [facility].? No further intervention required at this time, social services designee will be available to address any further concerns.? ENGINEERING CLERK updated bedside nurse.?
== END 2025-04-17 13:25 | disposition home or self-care (01) | DRG 560 ==
LOC: S4SX 04-15 18:05 → S4NX 04-15 20:30
PROVIDERS: Specialist; Admitting Provider Obstetrics & Gynecology; Visit Provider Obstetrics & Gynecology
DX: O48.0 Post-term pregnancy (principal); Z37.0 Single live birth; Z3A.41 41 weeks gestation of pregnancy; O14.94 Unspecified pre-eclampsia, complicating childbirth; O69.81X0 Labor and delivery complicated by cord around neck, without compression, not applicable or unspecified; O70.1 Second degree perineal laceration during delivery; O72.1 Other immediate postpartum hemorrhage; O75.81 Maternal exhaustion complicating labor and delivery
CPT/HCPCS: 36415; 59409; 80053; 80307; 81001; 82570; 84156; 84550; 85025; 85384; 85610; 85730; 86780; 86850; 86900; 86901; 94762; J0360; J0689; J2590; J2795; J3010; J3490; J7120; S0191; A9270; J1920